=== PATIENT | female | born 1995 | race Caucasian/White ===

== ENCOUNTER → 2017-02-07 | Outpatient (CLI) | payer BC ==
[~2017-02-07] MED LIST: PRENTAB26 PO
[2017-02-07 13:05] LABS: BASO % 0.6 %; BASO ABS # 0.04 K/uL (0-0.2); COMPLETE YES; EOS % 1.7 %; HEMATOCRIT 39.8 % (37-47); LYMPH % 31.7 %; LYMPH ABS # 2.01 K/uL (1.2-3.4); MEAN CELL VOLUME 87.3 fL (80-100); MEAN CORPUSCULAR HEMOGLOBIN 30.3 pg (25-34); MEAN CORPUSCULAR HGB CONC 34.7 g/dl (32-36); MEAN PLATELET VOLUME 10.3 fL (7.4-10.4); MONO % 8.2 %; NEUT % 57.8 %; PLATELET COUNT 321 K/uL (130-400); RED BLOOD COUNT 4.56 M/uL (4.2-5.4); WHITE BLOOD COUNT 6.35 K/uL (4.8-10.8)
[2017-02-07 13:45] LABS: ALT/SGPT 21 U/L (12-78); AST/SGOT 13 U/L (15-37); BLOOD UREA NITROGEN 10 mg/dl (7-18); BUN/CREATININE RATIO 14.8 (10-20); CALCIUM 8.7 mg/dl (8.5-10.1); CARBON DIOXIDE 24 mmol/L (21-32); CHLORIDE 107 mmol/L (98-107); CREATININE 0.71 mg/dl (0.60-1.20); GLUCOSE 80 mg/dl (70-99); SODIUM 139 mmol/L (136-145)
[2017-02-07 13:57] LABS: ALB/GLOB RATIO 1.1 (0.9-2); ALKALINE PHOSPHATASE 33 U/L (45-117); CHOLESTEROL 157 mg/dl (0-200); CHOLESTEROL/HDL RATIO 2.7; HDL CHOLESTEROL 58 mg/dl; TRIGLYCERIDES 52 mg/dl (0-150); VERY LOW DENSITY LIPOPROT CALC 10 mg/dl
== END | disposition home or self-care (01) ==
LOC: C.LABSPEC 12:23
PROVIDERS: ATTEND Internal Medicine
DX: Z00.00 Encounter for general adult medical examination without abnormal findings (principal); R53.83 Other fatigue

== ENCOUNTER → 2017-08-05 | Outpatient (CLI) | payer OTHER | END | disposition home or self-care (01) | LOC: C.LABSPEC 12:37 | PROVIDERS: ATTEND Internal Medicine | DX: J02.9 Acute pharyngitis, unspecified (principal) ==

== ENCOUNTER → 2017-08-07 | Outpatient (CLI) | payer OTHER ==
[2017-08-07 14:33] LABS: BASO % 0.2 %; BASO ABS # 0.02 K/uL (0-0.2); HEMATOCRIT 37.5 % (37-47); HEMOGLOBIN 12.9 g/dL (12.0-16.0); IG# 0.01 K/uL (0.00-0.02); LYMPH % 22.6 %; LYMPH ABS # 1.93 K/uL (1.2-3.4); MEAN CELL VOLUME 88.9 fL (80-100); MEAN CORPUSCULAR HEMOGLOBIN 30.6 pg (25-34); MEAN CORPUSCULAR HGB CONC 34.4 g/dl (32-36); MEAN PLATELET VOLUME 10.1 fL (7.4-10.4); MONO % 13.6 %; MONO ABS # 1.16 K/uL (0.11-0.59); NEUT % 63.5 %; NEUT ABS # 5.43 K/uL (1.4-6.5); PLATELET COUNT 289 K/uL (130-400); RED CELL DISTRIBUTION WIDTH CV 12.6 % (11.5-14.5); RED CELL DISTRIBUTION WIDTH SD 40.6 fL (36.4-46.3); WHITE BLOOD COUNT 8.55 K/uL (4.8-10.8)
[2017-08-07 14:49] LABS: INFLUENZA B ANTIGEN Neg for Influ B (NEG)
[2017-08-11 16:35] LABS: EBV EARLY ANTIGEN AB < 9.00 U/ML
== END | disposition home or self-care (01) ==
LOC: C.LABSPEC 13:22
PROVIDERS: ATTEND Internal Medicine
DX: J02.9 Acute pharyngitis, unspecified (principal); R69 Illness, unspecified

== ENCOUNTER → 2017-09-18 | Outpatient (CLI) | payer OTHER | END | disposition home or self-care (01) | LOC: C.LABSPEC 13:39 | PROVIDERS: ATTEND Physician Assistant | DX: N89.8 Other specified noninflammatory disorders of vagina (principal) ==

== ENCOUNTER 2021-01-03 07:32 | Inpatient (IN) ==
[2021-01-03] MEDS ORDERED: OXYTOCIN 30 UNITS/500 ML BAG IV PRN ×3 (07:56→17:30)
[2021-01-03] MEDS: LACTATED RINGER'S 1,000 ML IV PRN ×2 (09:21→13:45)
[2021-01-03] MEDS ORDERED: ALBUTEROL HFA 8 GM INHALER INH PRN (09:23)
[2021-01-03 09:25] LABS: Hematocrit (blood only) 36.3 % (37-47); Hemoglobin 12.4 g/dL (12.0-16.0); Mean Corpuscular Hemoglobin 30.1 pg (25-34); Mean Corpuscular Hgb Conc 34.2 g/dL (32-36); Mean Corpuscular Volume 88.1 fL (80-100); Platelet Count 293 K/uL (130-400); RDW Coefficient of Variation 14.2 % (11.5-14.5); Red Blood Count 4.12 M/uL (4.2-5.4); White Blood Count 9.57 K/uL (4.8-10.8)
--- NOTE | 2021-01-03 09:58 | History & Physical Report ---
Date of Service January 03, 2021 Assessment & Plan Admission and Anticipated Discharge Date Admission Date: January 03, 2021 IUP at 40+ weeks for IOL begin pitocin induction epidural when requested anticipate vaginal History of Present Illness Primary Care Provider: Randolph Vera MD Patient is a 25 yo white female EDC 12/30/20 who presents for IOL because of post term . uncomplicated. GBS negative Blood type- O positive Allergies Allergy/AdvReac Type Severity Reaction Status Date / Time No Known Drug Allergies AdvReac Verified 01/02/21 10:03 [id number] Allergy Unknown Uncoded 11/10/20 09:36 Home Medications Medication Instructions Recorded Confirmed Type albuterol sulfate 90 mcg/actuation 1 puffs INH Q6H PRN 05/05/19 01/02/21 History aerosol inhaler prenat.vits,ruthy,[id number] 1 tab PO DAILY 05/23/20 01/02/21 History cetirizine PO 08/18/20 01/02/21 History Patient History Medical History Breast mass Exercise-induced asthma H/O varicella Herpes simplex cold sores only, not genital. Intrauterine (03/01/12) Vaginal delivery Surgical History S/P tooth extraction Family History Father Rheumatoid arthritis Disorder of stomach and duodenum Mother Breast cancer, Onset Age: 45 Aunt Breast cancer maternal, Negative BRCA testing Grandmother (Maternal) Breast cancer Denies family history of Ovarian cancer Colorectal cancer Social History Smoking Status: Never smoker Hx Alcohol Use: No Hx Substance Use: No Preferred Language: Citizen Of [place] Beliefs That Will Affect Care: None marital status: marital status details: Rj (26) [phone] Current Living Situation: Spouse Current Living Situation Comment: lives with spouse, son, 2 dogs, 1 cat, son to change litter. 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 Other Information That Helps Us Care for You: No Feels Safe at Home: Yes Safety Concerns: Feels Safe At This Time Assistive Devices: None Review of Systems All systems reviewed & are unremarkable except as noted in HPI & below Physical Exam Constitutional: WD/WN, vitals as above Respiratory: normal respiratory effort, lungs clear to auscultation Cardiovascular: RRR, no murmur, no edema Gastrointestinal (Abdomen): normal bowel sounds, soft, nontender, no hepatosplenomegaly Psychiatric: A+Ox3, euthymic affect Genitourinary: OB Exam Abdomen: + vertex, + estimated weight (7-8 p ounds) and + irregular contractions Manual OB Exam: + cervical dilation 2 cm, + cervical effacement 70% and + station -2 OB Exam Monitor Tracing: + external FHT monitor used, + external uterine monitor used and + normal FHT variability Results & Data ([facility]) Vital Signs (Past 12 Hours) Vital Signs Temp Pulse Resp BP 01/03/21 09:33 87 126/69 01/03/21 08:36 98.1 F 20 01/03/21 07:52 98.1 F 97 H 20 139/87 Coding Level of Care Code None
[2021-01-03] MEDS ORDERED: ePHEDrine sulfate 50 MG/ML AMP ONE (13:26)
[2021-01-03] MEDS ORDERED: fentaNYL citrate 100 MCG/2 ML VIAL ONE (13:26)
[2021-01-03] MEDS ORDERED: SODIUM CHLORIDE 0.9% INJ 10 ML VIAL ONE (13:26)
[2021-01-03] MEDS ORDERED: BUPIVACAINE 0.25% 30 ML VIAL ONE (13:26)
[2021-01-03] MEDS ORDERED: fentaNYL 2MCG/ML ROPIVACAINE 1.25MG/ML 100 ML BAG EPI ONE (13:27)
[2021-01-03] MEDS ORDERED: NALOXONE HCL 0.4 MG/1 ML VIAL/CARP IV PRN (13:33)
[2021-01-03] MEDS ORDERED: diphenhydrAMINE 50 MG/ML VIAL IV PRN (13:33)
[2021-01-03] MEDS ORDERED: fentaNYL 2MCG/ML ROPIVACAINE 1.25MG/ML 100 ML BAG EPI PRN (13:33)
[2021-01-03] MEDS ORDERED: ePHEDrine sulfate 50 MG/ML AMP IV PRN (13:33)
[2021-01-03] MEDS ORDERED: NALBUPHINE HCL INJ 10 MG/ML AMP IV PRN (13:33)
[2021-01-03] MEDS ORDERED: ONDANSETRON INJ 2 MG/ML 2 ML VIAL IV PRN (13:33)
[2021-01-03] MEDS ORDERED: NALOXONE HCL 1 MG in SODIUM CHLORIDE 0.9% 1000ML 1,000 ML IV PRN (13:33)
--- NOTE | 2021-01-03 13:33 | Anesthesiology Consultation ---
Date of Service January 03, 2021 Assessment & Plan ASA ASA2 Proposed Anesthesia Anesthesia Type: Labor Epidural Risk / Benefits Reviewed With: PT / POA / Parent / Guardian, Accepts Plan and Informed Consent Obtained History Height/Weight Height: 5 ft 4 in Weight: 92.986 kg Allergies Allergy/AdvReac Type Severity Reaction Status Date / Time No Known Drug Allergies AdvReac Unknown Verified 01/03/21 12:59 Medications Home Medications Medication Instructions Recorded Confirmed Last Taken albuterol sulfate 90 mcg/actuation 1 puffs INH Q6H PRN 05/05/19 01/03/21 11/04/19 aerosol inhaler cetirizine 10 mg PO DAILY PRN 08/18/20 01/03/21 01/03/21 10:51 ferrous sulfate [Iron (ferrous 325 mg PO DAILY 01/03/21 01/03/21 01/02/21 21:00 sulfate)] prenat.vits,ruthy,[id number] 1 tab PO DAILY 01/03/21 01/03/21 01/02/21 21:00 [ Vitamin] Active Medications Generic Name Dose Route Start Last Admin Trade Name Freq PRN Reason Stop Dose Admin Lactated Ringer's 1,000 mls @ 125 mls/hr 01/03/21 07:56 01/03/21 13:58 Lr IV 01/05/21 07:55 125 mls/hr .Q8H PRN Infusion L&D Protocol Protocol Oxytocin 30 units in 500 mls @ 9 mls/hr 01/03/21 07:59 01/03/21 12:46 Pitocin IV 01/05/21 07:58 0.54 units/hr .Q24H PRN 9 mls/hr Labor Induction/Augmentation Titration Protocol 0.54 UNITS/HR Past Medical History Medical History Breast mass Exercise-induced asthma H/O varicella Herpes simplex cold sores only, not genital. Intrauterine (03/01/12) Vaginal delivery Exercise / Class Metabolic Activity II 4-5 Yardwork/Stairs/Walk up hill Past Family History Family History Father Rheumatoid arthritis Disorder of stomach and duodenum Mother Breast cancer, Onset Age: 45 Aunt Breast cancer maternal, Negative BRCA testing Grandmother (Maternal) Breast cancer Denies family history of Ovarian cancer Colorectal cancer Past Surgical History Surgical History S/P tooth extraction Past Anesthesia History No Hx of Anesthesia Complications and No Family Hx of Anesthesia Complications History of PONV No Hx of PONV and No Hx of Motion Sickness Social History Smoking Status: Never smoker Hx Alcohol Use: No Hx Substance Use: No substance use type: does not use Review of Systems denies fever/cough/ colds/ chest pain/ SOB/ SHELBIE denies SHELBIE Physical Exam Vital Signs Last Vital Signs Temp 36.7 C 01/03/21 08:36 Pulse 111 H 01/03/21 14:15 Resp 20 01/03/21 08:36 BP 138/70 01/03/21 14:06 Pulse Ox 98 01/03/21 14:15 ENMT Mouth: no TMJ abnormality and no dentition abnormality Thyromental Distance: > or= 3.5 Finger Breadths Mallampati Class: II Neck neck extension not limited Respiratory normal respiratory effort; no respiratory distress Auscultation: lungs clear to auscultation bilaterally Cardiovascular Rate/Rhythm: regular rate and regular rhythm Neurologic moves all extremities Psychiatric Orientation: alert and oriented x 3 Testing Laboratory Results 01/03/21 09:14 Blood Type O Positive 01/03/21 09:14
[2021-01-03] MEDS ORDERED: SUPERCREAM 0.870% 15 GM JAR EXT PRN (17:30)
[2021-01-03] MEDS ORDERED: ACETAMINOPHEN 325 MG TAB PO PRN (17:30)
[2021-01-03] MEDS ORDERED: DIPHTHERIA/TETANUS/PERTUSSIS 0.5 ML SYR/VIAL IM ONE (17:30)
[2021-01-03] MEDS ORDERED: oxyCODONE/ACETAMINOPHEN 5mg/325mg TAB PO PRN (17:30)
[2021-01-03] MEDS ORDERED: HYDROCORTISONE ACETATE 25 MG SUPP PR PRN (17:30)
[2021-01-03] MEDS ORDERED: bisacodyL 10 MG SUPP PR PRN (17:30)
[2021-01-03] MEDS ORDERED: BENZOCAINE 20% AER SPR 82.5 GM CAN EXT PRN (17:30)
--- NOTE | 2021-01-03 17:35 | Delivery Summary ---
Vaginal Delivery Summary Date of Service January 03, 2021 Patient is a 25-year-old 2 para 2-0-0-1 white female who presented for postdates induction. Pitocin augmentation was begun , membranes ruptured spontaneously for clear fluid. She received effective epidural analgesia. She progressed to full dilation and pushed effectively over intact perineum for delivery of a viable male infant. After the head was delivered, there was a tight nuchal cord x2 noted. The cord was clamped and cut prior to delivering the rest of the . The was placed on the mother's abdomen for further attention and drying. The infant was vigorous and moving all 4 limbs. The placenta was expressed intact with a three-vessel cord. A second-degree perineal laceration and first-degree right labial laceration were repaired with 3-0 chromic in the usual fashion. Estimated blood loss was 250 cc. Mother and were doing well after delivery. Vaginal Delivery Summary and 2nd Degree [facility]AC [facility] [place] Vaginal Delivery Charge Delivery Type Details: and 2nd Degree LAC
--- NOTE | 2021-01-03 19:03 | Anesthesiology Progress Note ---
Date of Service January 03, 2021 Anesthesia Post Procedure Vital Signs Vital Signs: Temp Pulse Resp BP Pulse Ox 01/03/21 18:55 110 H 142/78 H 01/03/21 18:40 123 H 137/79 01/03/21 18:35 108 H 132/66 01/03/21 18:30 18 01/03/21 18:26 114 H 133/70 01/03/21 18:15 18 01/03/21 18:10 120 H 130/60 01/03/21 18:00 18 01/03/21 17:55 112 H 133/62 01/03/21 17:45 18 01/03/21 17:40 117 H 135/63 01/03/21 17:30 18 01/03/21 17:25 125 H 137/61 01/03/21 17:10 133 H 167/83 H 01/03/21 17:05 130 H 95 01/03/21 17:01 130 H 168/81 H 01/03/21 17:00 36.9 C 128 H 18 97 01/03/21 16:56 137 H 155/128 H 01/03/21 16:55 117 H 98 01/03/21 16:50 127 H 98 01/03/21 16:45 115 H 98 01/03/21 16:40 114 H 125/65 97 01/03/21 16:35 116 H 98 01/03/21 16:30 105 H 98 01/03/21 16:26 103 H 133/73 01/03/21 16:25 105 H 98 01/03/21 16:20 119 H 98 01/03/21 16:15 94 H 98 01/03/21 16:12 117 H 135/70 01/03/21 16:10 98 H 98 01/03/21 16:05 123 H 98 01/03/21 16:00 112 H 99 01/03/21 15:56 36.8 C 102 H 20 133/74 01/03/21 15:55 101 H 99 01/03/21 15:50 105 H 99 01/03/21 15:45 117 H 98 01/03/21 15:41 108 H 130/62 01/03/21 15:40 106 H 97 01/03/21 15:35 126 H 99 01/03/21 15:30 119 H 99 01/03/21 15:26 94 H 130/69 01/03/21 15:25 95 H 98 01/03/21 15:20 100 H 98 01/03/21 15:15 94 H 98 01/03/21 15:10 104 H 134/70 98 01/03/21 15:05 99 H 97 01/03/21 15:00 93 H 98 01/03/21 14:56 109 H 131/71 01/03/21 14:55 94 H 97 01/03/21 14:50 95 H 97 01/03/21 14:45 100 H 97 01/03/21 14:41 99 H 131/66 01/03/21 14:40 92 H 98 01/03/21 14:35 107 H 98 01/03/21 14:30 107 H 98 01/03/21 14:26 114 H 136/72 01/03/21 14:25 115 H 100 01/03/21 14:20 118 H 99 01/03/21 14:15 111 H 98 01/03/21 14:11 36.8 C 01/03/21 14:10 107 H 98 01/03/21 14:06 114 H 138/70 01/03/21 14:05 117 H 97 01/03/21 14:01 115 H 143/72 H 01/03/21 14:00 113 H 97 01/03/21 13:59 140/75 01/03/21 13:57 106 H 139/71 01/03/21 13:55 115 H 143/75 H 98 01/03/21 13:53 104 H 141/75 H 01/03/21 13:50 102 H 98 01/03/21 13:45 92 H 96 01/03/21 13:40 110 H 97 01/03/21 12:20 36.7 C 01/03/21 11:04 86 115/63 01/03/21 09:33 87 126/69 01/03/21 08:36 36.7 C 01/03/21 07:52 36.7 C 97 H 20 139/87 Transfer of Care Handoff Completed per policy Notes Mental Status: alert / awake / arousable and participated in evaluation Patient Amnestic to Procedure: Yes Nausea / Vomiting: adequately controlled Pain: adequately controlled Airway Patency, RR, SpO2: stable & adequate BP & HR: stable & adequate Hydration State: stable & adequate Anesthetic Complications: no major complications apparent and Pt Satisfied with anesthetic care
[2021-01-03] MEDS: DOCUSATE SODIUM 100 MG CAP PO SCH (20:02)
[2021-01-03] MEDS: IBUPROFEN 600 MG TAB PO PRN (20:02)
[2021-01-04 06:32] LABS: Hemoglobin 11.5 g/dL (12.0-16.0); Mean Corpuscular Hemoglobin 29.9 pg (25-34); Mean Corpuscular Hgb Conc 33.8 g/dL (32-36); Mean Corpuscular Volume 88.5 fL (80-100); Platelet Count 273 K/uL (130-400); RDW Coefficient of Variation 14.5 % (11.5-14.5); RDW Standard Deviation 47.1 fL (36.4-46.3); Red Blood Count 3.84 M/uL (4.2-5.4); White Blood Count 12.26 K/uL (4.8-10.8)
[2021-01-04] MEDS: DOCUSATE SODIUM 100 MG CAP PO SCH (07:40)
--- NOTE | 2021-01-04 07:52 | Obstetrical Progress Note ---
Date of Service January 04, 2021 Assessment & Plan (1) Encounter for care and examination after delivery: satisfactory course continue current care plan Subjective Ambulation: ambulating normally Voiding: no voiding problems Passing Gas:: Yes Diet Tolerance:: regular diet Lochia:: Small Feeding Type:: breast feeding Physical Exam Constitutional WD/WN, vitals as above Psychiatric A+Ox3, euthymic affect Genitourinary OB Exam Abdomen: + fundal height Fundus: + firm and + relation to umbilicus (at U) Results & Data ([facility]) Vital Signs (Past 12 Hours) Vital Signs Temp Pulse Resp BP 01/04/21 04:03 98.1 F 99 H 18 135/82 01/03/21 23:08 98.6 F 106 H 18 134/86 01/03/21 20:04 145/84 H
[2021-01-04] MEDS ORDERED: PRENATAL VITAMIN 1 TAB PO SCH (08:00)
[2021-01-04] MEDS: IBUPROFEN 600 MG TAB PO PRN ×2 (09:53→16:05)
[2021-01-04] MEDS ORDERED: bisacodyL 5 MG TABEC PO SCH (20:00)
== END 2021-01-04 19:20 | disposition home or self-care (01) | DRG 807 ==
LOC: 4S1 07:32 → 4S2 19:37